=== PATIENT | male | born 1960 | race Caucasian/White ===

== ENCOUNTER → 2021-03-14 | Outpatient (CLI) | payer OTHER ==
--- NOTE | 2021-03-19 16:41 | SLEEPHOME ---
DATE: 03/14/2021 ORDERED BY: Maurice Dorman Diagnostic home sleep testing was performed due to concern for the obstructive sleep apnea syndrome in this patient with a history of excessive somnolence and nonrestorative sleep. For testing, a NOX T3 respiratory monitoring device was used. Continuous record was made of pulse, oxygen saturation, air flow, chest and abdominal strain, and body position. There was 9 hours and 59 minutes of data reviewed. There was 8 hours and 14 minutes marked as time in bed. During the interval marked time in bed, there were 165 respiratory events identified of 10 seconds in duration or greater for a respiratory event index of 20. The events were primarily obstructive. Seventeen mixed and central apneas were seen. Baseline pulse rate 48. Pulse rate ranged 42-69. Baseline saturation 92%. Saturations fell to 84%. Testing was performed in both the supine and nonsupine positions. IMPRESSION: Abnormal home sleep testing with repetitive respiratory events and oxygen desaturations to 84% with a respiratory event index of 20 is consistent with the obstructive sleep apnea syndrome. RECOMMENDATION: The patient should be encouraged to undergo formal sleep evaluation.
== END ==
LOC: M SLEEP HO 14:12
PROVIDERS: ATTEND Physician Assistant
DX: G47.33 Obstructive sleep apnea (adult) (pediatric) (principal)

== ENCOUNTER → 2023-08-31 | Outpatient (CLI) | payer OTHER ==
[~2023-08-31] MED LIST: DILT180C95; METO5TAB2; ONDA-84 PO; PROC10TA5 PO; SILD20TA11
== END ==
LOC: M PLARAD 10:55
PROVIDERS: ATTEND Specialist
DX: C82.98 Follicular lymphoma, unspecified, lymph nodes of multiple sites (principal)
CPT/HCPCS: 78815; A9552

== ENCOUNTER → 2024-02-15 | Outpatient (CLI) | payer OTHER ==
[~2024-02-15] MED LIST changes: +IBUP-1114 PO; +IRON65TA2 PO; +JOBSMIS65 MC; +MAGICMW SSP; -SILD20TA11; +SILD20TA11 PO
== END ==
LOC: M PLARAD 11:56
PROVIDERS: ATTEND Dietitian, Registered
DX: C82.98 Follicular lymphoma, unspecified, lymph nodes of multiple sites (principal)
CPT/HCPCS: 78815; A9552

== ENCOUNTER → 2024-05-23 | Outpatient (CLI) | payer OTHER | LOC: M PLARAD 13:21 | PROVIDERS: ATTEND Specialist | DX: C82.98 Follicular lymphoma, unspecified, lymph nodes of multiple sites (principal) | CPT/HCPCS: 78815; A9552 ==